=== PATIENT | male | born 1935 | race Caucasian/White ===

== ENCOUNTER 2018-02-01 11:03 | Emergency (ER) | payer MEDICARE ==
[2018-02-01] MEDS ORDERED: LIDOCAINE UROJECT 10 ML APPL MM ONE ×2 (11:06→11:19)
--- NOTE | 2018-02-01 11:10 | Emergency Department Record ---
History of Present Illness - General Chief complaint: Male Urogenital Problem Stated complaint: NEED CATH PUT BACK IN Time Seen by Provider: 02/01/18 11:06 Source: EMS Mode of Arrival: Ambulatory Limitations: Altered mental status - History of Present Illness Initial comments: The patient is here from [facility] due to needing a de león catheter placed. He has a chronic indwelling catheter that was to be changed today but the nurse at [facility] was not able to place it correctly. There have been no changes in the patient's health. MD Complaint: Other Review of Systems Constitutional: Denies: Chills, Fever Eyes: Denies: Eye discharge ENT: Denies: Congestion Respiratory: Denies: Cough Physical Exam - General General Appearance: Alert, Cooperative, No acute distress - Head Head exam: Atraumatic, Normocephalic - Eye Eye exam: Normal appearance, PERRL - Neck Neck exam: Normal inspection, Full ROM. negative: Tenderness - Respiratory Respiratory exam: Normal lung sounds bilaterally. negative: Respiratory distress - Cardiovascular Cardiovascular Exam: Regular rate, Normal rhythm, Normal heart sounds - GI/Abdominal GI/Abdominal exam: Soft, Normal bowel sounds. negative: Tenderness - Extremities Extremities exam: Normal inspection, Full ROM, Normal capillary refill. negative: Tenderness - Neurological Neurological exam: Alert. negative: Motor sensory deficit, Oriented X3 Course - Reevaluation(s) Reevaluation #1: The patient did have a Coude catheter placed with no difficulty. There was some bleeding from the meatus prior to placement. The urine was slightly pink after but was flowing normally. The patient will be discharged back to [facility]. 02/01/18 11:48 Disposition Disposition: Discharge Clinical Impression: De León catheter problem Qualifiers: Encounter type: initial encounter Qualified Code(s): T83.9XXA - Unspecified complication of genitourinary prosthetic device, implant and graft, initial encounter Disposition: Home, Self-Care Condition: (2) Stable Instructions: De León Catheter Placement and Care (ED) Additional Instructions: Please continue the previous instructions for the catheter. Please have the patient see his PCP if having any problems later this week. Forms: Patient Portal Access Time of Disposition: 11:49 Quality - Quality Measures Quality Measures: N/A - Blood Pressure Screening View Details: Yes Does Patient Have Any of the Following: No Blood Pressure Classification: Hypertensive Reading Systolic Measurement: 147 Diastolic Measurement: 75 Screening for High Blood Pressure: < First Hypertensive BP, F/U Documented > [ G8950] First Hypertensive Follow-up Interventions: Referral to alternative/primary care provider.
== END 2018-02-01 12:22 | disposition home or self-care (01) ==
LOC: ER 11:03
DX: T83.091A Other mechanical complication of indwelling urethral catheter, initial encounter (principal); Y73.2 Prosthetic and other implants, materials and accessory gastroenterology and urology devices associated with adverse incidents; Y65.8 Other specified misadventures during surgical and medical care; Y92.129 Unspecified place in nursing home as the place of occurrence of the external cause
CPT/HCPCS: 99282

== ENCOUNTER 2018-08-06 09:23 | Inpatient (IN) | payer MEDICARE, BC ==
[2018-08-06 09:53] LABS: ABSOLUTE NEUTROPHIL COUNT 7.44; HEMATOCRIT 37.7 % (42.0-52.0); MEAN CELL VOLUME 93.3 fl (81-97); MEAN CORPUSCULAR HEMOGLOBIN 29.7 pg (27-33); MEAN CORPUSCULAR HGB CONC 31.8 g/dl (32-36); MEAN PLATELET VOLUME 9.7 fl (7.4-10.4); PLATELET COUNT 217 K/uL (130-400); RED BLOOD COUNT 4.04 M/uL (4.40-5.70); RED CELL DISTRIBUTION WIDTH 14.6 % (11.5-14.5); URINE APPEARANCE SL CLOUDY; URINE BILIRUBIN NEGATIVE (NEGATIVE); URINE BLOOD MODERATE (NEGATIVE); URINE COLOR YELLOW; URINE GLUCOSE (UA) NEGATIVE (NEGATIVE); URINE KETONE 15 mg/dL (NEGATIVE); URINE LEUKOCYTE ESTERASE LARGE (NEGATIVE); URINE NITRITE POSITIVE (NEGATIVE); URINE UROBILINOGEN 0.2 E.U./dL (0.20 - 1.00); WHITE BLOOD COUNT W/O DIFF 8.7 K/uL (4.2-12.2)
[2018-08-06 09:57] LABS: AMPHETAMINE SCREEN URINE NOT DETECTED; BARBITURATE SCREEN URINE NOT DETECTED; BENZODIAZEPINE SCREEN URINE NOT DETECTED; COCAINE SCREEN URINE NOT DETECTED; METHADONE SCREEN URINE NOT DETECTED; METHAMPHETAMINE SCREEN NOT DETECTED; OPIATE SCREEN URINE NOT DETECTED; OXYCODONE SCREEN URINE NOT DETECTED; PHENCYCLIDINE SCREEN URINE NOT DETECTED; PROPOXYPHENE SCREEN URINE NOT DETECTED; THC SCREEN URINE NOT DETECTED; TRICYCLIC ANTIDEPRESSANT SCRN NOT DETECTED
--- NOTE | 2018-08-06 10:02 | Emergency Department Record ---
History of Present Illness - General Chief Complaint: Unresponsive Stated Complaint: UNCONSCIOUS Time Seen by Provider: 08/06/18 09:27 Source: EMS Mode of Arrival: EMS Limitations: Altered mental status - History of Present Illness Initial comments: pt brought in by ems for mental status changes. pt reportedly fainted while in bed at [facility] and became unresponsive. employees started cpr when pt said ow ow ow and cpr was stopped. ems brought pt in breathing w stable vitals and moaning and moving. pt has an indwelling catheter -: Unknown Associated Symptoms: Weakness - [place] Coma Scale Eye Response: (2) Open to pain Motor Response: (4) Withdraws to pain Verbal Response: (3) Inappropriate words Teodoro Total: 9 - Related Data Home Medications Medication Instructions Recorded Confirmed Last Taken Acetaminophen 325 mg PO Q6HR 08/06/18 08/06/18 08/06/18 Alprazolam [Xanax] 0.25 mg PO Q8H 08/06/18 08/06/18 08/05/18 Latanoprost/Pf [Latanoprost 0.005% 7.5 ml OP QHS 08/06/18 08/06/18 08/05/18 Eye Drop] Lisinopril 30 mg PO DAILY 08/06/18 08/06/18 08/06/18 Lorazepam [Ativan] 1 mg PO ASDIR PRN 08/06/18 08/06/18 07/18/18 Allergies Allergy/AdvReac Type Severity Reaction Status Date / Time donepezil Allergy HYPERSENSIT Verified 08/06/18 10:35 IVITY ibuprofen [From Motrin] Allergy HYPERSENSIT Verified 08/06/18 10:35 IVITY pneumococcal vaccine Allergy HYPERSENSIT Verified 08/06/18 10:35 IVITY shellfish derived Allergy HYPERSENSIT Verified 08/06/18 10:35 IVITY Sulfa (Sulfonamide Allergy HYPERSENSIT Verified 08/06/18 10:35 Antibiotics) IVITY Tetanus Vaccines and Toxoid Allergy HYPERSENSIT Verified 08/06/18 10:35 IVITY Travel Screening - Travel/Exposure Within Last 30 Days Have you traveled within the last 30 days?: No - Travel/Exposure Within Last Year Have you traveled outside the [place] in the last year?: No - Additonal Travel Details Have you been exposed to anyone with a communicable illness?: No Review of Systems ROS unobtainable: Due to mental status Constitutional: Reports: As per HPI, Fever. Denies: Chills, Malaise, Night sweats, Weakness, Weight change Eyes: Reports: As per HPI. Denies: Eye discharge, Eye pain, Photophobia, Vision change ENT: Reports: As per HPI. Denies: Congestion, Dental pain, Ear pain, Epistaxis, Hearing loss, Throat pain Respiratory: Reports: As per HPI. Denies: Cough, Dyspnea, Hemoptysis, Stridor, Wheezes Cardiovascular: Reports: As per HPI. Denies: Arrhythmia, Chest pain, Dyspnea on exertion, Edema, Murmurs, Orthopnea, Palpitations, Paroxysmal nocturnal dyspnea, Rheumatic Fever, Syncope Endocrine: Reports: As per HPI. Denies: Fatigue, Heat or cold intolerance, Polydipsia, Polyuria Gastrointestinal: Reports: As per HPI. Denies: Abdominal pain, Constipation, Diarrhea, Hematemesis, Hematochezia, Melena, Nausea, Vomiting Genitourinary: Reports: As per HPI. Denies: Dysuria, Frequency, Hematuria, Incontinence, Retention, Testicular pain, Testicular mass, Urgency Musculoskeletal: Reports: As per HPI. Denies: Arthralgia, Back pain, Gout, Joint swelling, Myalgia, Neck pain Skin: Reports: As per HPI. Denies: Bruising, Change in color, Change in hair/nails, Lesions, Pruritus, Rash Neurological: Reports: As per HPI. Denies: Abnormal gait, Confusion, Headache, Numbness, Paresthesias, Seizure, Tingling, Tremors, Vertigo, Weakness Psychiatric: Reports: As per HPI. Denies: Anxiety, Auditory hallucinations, Depression, Homicidal thoughts, Suicidal thoughts, Visual hallucinations Hematological/Lymphatic: Reports: As per HPI. Denies: Anemia, Blood Clots, Easy bleeding, Easy bruising, Swollen glands Past Medical History - SOCIAL HISTORY Smoking Status: Never smoker Family Medical History Any Significant Family History?: No Physical Exam - General General Appearance: Alert, Cooperative, Mild distress - Head Head exam: Normal inspection - Eye Eye exam: Normal appearance, PERRL, EOMI Pupils: Normal accommodation - ENT ENT exam: Normal exam, Mucous membranes dry, Normal external ear exam, Normal orophraynx Ear exam: Normal external inspection. negative: External canal tenderness Nasal Exam: Normal inspection. negative: Discharge, Sinus tenderness Mouth exam: Normal external inspection, Tongue normal Teeth exam: Normal inspection. negative: Dental caries Throat exam: Normal inspection. negative: Tonsillar erythema, Tonsillar exudate - Neck Neck exam: Normal inspection, Full ROM. negative: Tenderness - Respiratory Respiratory exam: Normal lung sounds bilaterally. negative: Respiratory distress - Cardiovascular Cardiovascular Exam: Regular rate, Normal rhythm, Normal heart sounds - GI/Abdominal GI/Abdominal exam: Soft, Normal bowel sounds. negative: Tenderness - Rectal Rectal exam: Deferred - exam: Deferred - Extremities Extremities exam: Normal inspection, Full ROM, Normal capillary refill. negative: Tenderness - Back Back exam: Reports: Normal inspection, Full ROM. Denies: Muscle spasm, Rash noted, Tenderness - Neurological Neurological exam: Altered, CN II-XII intact - Psychiatric Psychiatric exam: Normal affect, Normal mood - Skin Skin exam: Dry, Intact, Normal color, Warm Course Vital Signs 08/06/18 09:29 Temperature 99.7 F H Respiratory 20 Rate - Reevaluation(s) Reevaluation #1: 08/06/18 12:09 wants xanax stopped and use ativan instead Medical Decision Making - Lab Data Result diagrams: 08/06/18 09:40 08/06/18 09:40 Lab Results 08/06/18 08/06/18 Range/Units 09:40 09:40 WBC 8.7 (4.2-12.2) K/uL RBC 4.04 L (4.40-5.70) M/uL Hgb 12.0 L (14.0-18.0) gm/dl Hct 37.7 L (42.0-52.0) % MCV 93.3 (81-97) fl MCH 29.7 (27-33) pg MCHC 31.8 L (32-36) g/dl RDW 14.6 H (11.5-14.5) % Plt Count 217 (130-400) K/uL MPV 9.7 (7.4-10.4) fl Eosinophils % Not Reportable Basophils % Not Reportable Absolute Neutrophils 7.44 Urine Color Yellow Urine Appearance Sl cloudy Urine pH 7.0 (5.0-8.0) Ur Specific [place] 1.015 (1.002-1.030) Urine Protein 30 mg/dl H (NEGATIVE) Urine Glucose (UA) Negative (NEGATIVE) Urine Ketones 15 mg/dl H (NEGATIVE) Urine Blood Moderate (NEGATIVE) Urine Nitrite Positive H (NEGATIVE) Urine Bilirubin Negative (NEGATIVE) Urine Urobilinogen 0.2 (0.20 - 1.00) E.U./dL Ur Leukocyte Esterase Large H (NEGATIVE) Disposition Disposition: Admit Clinical Impression: Pyelonephritis Disposition: Still a Patient at [facility] Decision to Admit: Admit from ER Decision to Admit Date: 08/06/18 Decision to Admit Time: 11:50 Forms: Patient Portal Access Quality - Quality Measures Quality Measures: N/A - Blood Pressure Screening Does Patient Have Any of the Following: No Blood Pressure Classification: Pre-Hypertensive BP Reading Systolic Measurement: 153 Diastolic Measurement: 82 Screening for High Blood Pressure: < Pre-Hypertensive BP, F/U Documented > [G8950] Pre-Hypertensive Follow-up Interventions: Follow-up with rescreen every year.
[2018-08-06 10:03] LABS: CREATININE 1.4 mg/dL (0.7-1.2)
[2018-08-06 10:04] LABS: BILIRUBIN,TOTAL 0.6 mg/dL (0.2-1.0); TOTAL PROTEIN 7.2 g/dL (6.6-8.7)
[2018-08-06 10:05] LABS: URINE BACTERIA 4+; URINE EPITHELIAL CELLS NONE SEEN (FEW)
[2018-08-06 10:09] LABS: ALB/GLOB RATIO 1.5 (1.1-1.8); ALBUMIN 4.3 g/dL (4.0-5.0)
[2018-08-06 10:22] LABS: PLATELET ESTIMATE NORMAL (NORMAL)
[2018-08-06] MEDS ORDERED: CIPROFLOXACIN LACTATE/D5W 400 MG/200 ML BAG IVPB ONE (11:11)
[2018-08-06] MEDS ORDERED: LORAZEPAM 2 MG/ML VIAL IV PRN (13:59)
--- NOTE | 2018-08-06 16:09 | History & Physical ---
History of Present Illness - Date of Service Date of Service for History & Physical: 08/07/18 - History of Present Illness Admitting Diagnosis: pylonephritis. mental status changes History of Present Illness: 83 year old male patient presented to ED for evaluation of mental status changes. Patient lives at [facility], where staff report patient became unconscious while in bed. [facility] employees started CPR at that time but patient awakened, yelling out in pain. Upon arrival to ED, patient had normal respiratory rate, unremarkable vital signs, and moaning. Patient has a history of dementia with a GCS of 9 in the ER. Staff report no recent illness or trauma to patient. Patient's past medical history include: dementia, HTN, hemorrhagic CVA with residual aphasia, current indwelling urinary catheter PCP: Dr. Staley ED Course: Temp 99.7F, RR 20, HR 59, BP 140/83 WBC 8.7, lactic acid 1.4, Hgb 12 UA: moderate blood, positive nitrites, large leuk, large WBC Blood cultures and urine cultures pending CXR: patchy opacities in left lung base Head CT: no acute findings Cipro 400mg q12h IVPB 08/06/18: Patient is not oriented, opens eyes to painful stimulation, does not follow commands or verbalize answers to questions. VS stable. Changing Cipro that was started in ED to Levaquin for further respiratory coverage due to coarse lung sounds and questionable infiltrates noted on CXR. Travel Screening - Travel/Exposure Within Last 30 Days Have you traveled within the last 30 days?: No - Travel/Exposure Within Last Year Have you traveled outside the [place] in the last year?: No - Additonal Travel Details Have you been exposed to anyone with a communicable illness?: No Exposure Details:: lives at [facility] Review of Systems Reviewed: No additional complaints except as noted below Constitutional: Reports: As per HPI, Fever. Denies: Chills, Malaise, Night sweats, Weakness, Weight change Eyes: Reports: As per HPI. Denies: Eye discharge, Eye pain, Photophobia, Vision change ENT: Reports: As per HPI. Denies: Congestion, Dental pain, Ear pain, Epistaxis, Hearing loss, Throat pain Respiratory: Reports: As per HPI. Denies: Cough, Dyspnea, Hemoptysis, Stridor, Wheezes Cardiovascular: Reports: As per HPI. Denies: Arrhythmia, Chest pain, Dyspnea on exertion, Edema, Murmurs, Orthopnea, Palpitations, Paroxysmal nocturnal dyspnea, Rheumatic Fever, Syncope Endocrine: Reports: As per HPI. Denies: Fatigue, Heat or cold intolerance, Polydipsia, Polyuria Gastrointestinal: Reports: As per HPI. Denies: Abdominal pain, Constipation, Diarrhea, Hematemesis, Hematochezia, Melena, Nausea, Vomiting Genitourinary: Reports: As per HPI. Denies: Dysuria, Frequency, Hematuria, Incontinence, Retention, Testicular pain, Testicular mass, Urgency Musculoskeletal: Reports: As per HPI. Denies: Arthralgia, Back pain, Gout, Joint swelling, Myalgia, Neck pain Skin: Reports: As per HPI. Denies: Bruising, Change in color, Change in hair/nails, Lesions, Pruritus, Rash Neurological: Reports: As per HPI, Confusion. Denies: Abnormal gait, Headache, Numbness, Paresthesias, Seizure, Tingling, Tremors, Vertigo, Weakness Psychiatric: Reports: As per HPI. Denies: Anxiety, Auditory hallucinations, Depression, Homicidal thoughts, Suicidal thoughts, Visual hallucinations Hematological/Lymphatic: Reports: As per HPI. Denies: Anemia, Blood Clots, Easy bleeding, Easy bruising, Swollen glands Past Medical History - SOCIAL HISTORY Smoking Status: Never smoker Alcohol Use: None Alcohol Use Comment: beer infrequently in past Drug Use: None - RESPIRATORY Hx Respiratory Disorders: No - CARDIOVASCULAR Hx Cardio Disorders: Yes Hx Hypertension: Yes - NEURO Hx Neuro Disorders: Yes Hx Dementia: Yes Hx Neuropathy: Yes - GI Hx GI Disorders: Yes Hx Hiatal Hernia: Yes Hx of Polyps: Yes - Hx Genitourinary Disorders: Yes Hx Kidney Stones: Yes Hx UTI: Yes (frequent) - ENDOCRINE Hx Endocrine Disorders: No - MUSCULOSKELETAL Hx Musculoskeletal Disorders: No - PSYCH Hx Psych Problems: No - HEMATOLOGY/ONCOLOGY Hx Hematology/Oncology Disorders: Yes Hx Cancer: Yes (liposarcoma) Family Medical History Any Significant Family History?: No Hx Alcohol Use: Mother, Brother/Sister Hx Cancer: Father Hx Dementia: Father, Grandparents Hx Heart Disease: Mother H&P Meds/Allergies - Allergies Allergies: Allergies Allergy/AdvReac Type Severity Reaction Status Date / Time donepezil Allergy HYPERSENSIT Verified 08/06/18 10:35 IVITY ibuprofen [From Motrin] Allergy HYPERSENSIT Verified 08/06/18 10:35 IVITY pneumococcal vaccine Allergy HYPERSENSIT Verified 08/06/18 10:35 IVITY shellfish derived Allergy HYPERSENSIT Verified 08/06/18 10:35 IVITY Sulfa (Sulfonamide Allergy HYPERSENSIT Verified 08/06/18 10:35 Antibiotics) IVITY Tetanus Vaccines and Toxoid Allergy HYPERSENSIT Verified 08/06/18 10:35 IVITY - Home Medications Home Medications Medication Instructions Recorded Confirmed Last Taken Acetaminophen 325 mg PO Q6H PRN 08/06/18 08/06/18 08/06/18 Alprazolam [Xanax] 0.25 mg PO BID PRN 08/06/18 08/06/18 08/05/18 Latanoprost/Pf [Latanoprost 0.005% 1 drop OP QHS 08/06/18 08/06/18 08/05/18 Eye Drop] Lisinopril 30 mg PO DAILY 08/06/18 08/06/18 08/06/18 Lorazepam [Ativan] 1 mg PO MONTHLY PRN 08/06/18 08/06/18 07/18/18 - Active Medications Active Medications: Current Medications Acetaminophen (Tylenol 500mg Tab) 1,000 mg PO Q6H PRN PRN Reason: PAIN - MILD(1-4)/FEVER Ciprofloxacin Lactate (Cipro) 400 mg in 200 mls @ 200 mls/hr IVPB Q12HR ITZ Stop: 08/11/18 22:01 Latanoprost (Xalatan) 1 drop OPTH QHS ITZ Lisinopril (Zestril) 30 mg PO DAILY ITZ Lorazepam (Ativan) 1 mg IV Q8H PRN PRN Reason: ANXIETY Physical Exam - Vital Signs Vital Signs: Vital Signs - Last 24 Hrs Temp Pulse Pulse Resp BP BP Pulse Ox 08/06/18 13:12 68 16 144/75 97 08/06/18 12:50 59 L 18 133/68 99 08/06/18 11:30 60 18 149/70 99 08/06/18 11:00 99 H 18 109/68 99 08/06/18 10:40 65 16 108/71 99 08/06/18 10:20 62 16 145/71 99 08/06/18 09:40 75 16 129/76 99 08/06/18 09:32 66 16 129/64 99 05/10/19 09:29 99.7 F H 73 20 153/82 99 - General General Appearance: No acute distress Limitations: Altered mental status - Head Head exam: Normal inspection - Eye Eye exam: Normal appearance, PERRL Pupils: Normal accommodation - ENT ENT exam: Normal exam, Mucous membranes dry Ear exam: Normal external inspection. negative: External canal tenderness Nasal Exam: Normal inspection. negative: Discharge, Sinus tenderness Mouth exam: Normal external inspection Teeth exam: Normal inspection. negative: Dental caries Throat exam: Normal inspection. negative: Tonsillar erythema, Tonsillar exudate - Neck Neck exam: Normal inspection, Full ROM. negative: Tenderness - Respiratory Respiratory exam: Rhonchi (bilateral lower lobes). negative: Respiratory distress - Cardiovascular Cardiovascular Exam: Regular rate, Normal rhythm, Normal heart sounds Peripheral Pulses: 2+: Radial (R), Radial (L), Dorsalis Pedis (R), Dorsalis Pedis (L) - GI/Abdominal GI/Abdominal exam: Soft, Normal bowel sounds. negative: Tenderness - Rectal Rectal exam: Deferred - exam: Deferred, Other (de león cather in place) - Extremities Extremities exam: Normal inspection, Full ROM, Normal capillary refill. negative: Tenderness - Back Back exam: Reports: Normal inspection, Full ROM. Denies: Muscle spasm, Rash noted, Tenderness - Neurological Neurological exam: Altered - Skin Skin exam: Dry, Intact, Warm Results - Labs Result Diagrams: 08/07/18 06:15 08/07/18 06:15 Labs Last 24 Hours: Laboratory Results - last 24 hr 08/06/18 08/06/18 08/06/18 09:40 09:40 09:40 WBC 8.7 RBC 4.04 L Hgb 12.0 L Hct 37.7 L MCV 93.3 MCH 29.7 MCHC 31.8 L RDW 14.6 H Plt Count 217 MPV 9.7 Neutrophils % 92.0 H Eosinophils % Not Reportable Basophils % Not Reportable Absolute Neutrophils 7.44 Lymphocytes 5.0 L Monocytes 3.0 Platelet Estimate Normal RBC Morphology Normal Sodium 140 Potassium 4.2 Chloride 103 Carbon Dioxide 26.0 Anion Gap 11.0 BUN 34 H Creatinine 1.4 H Estimated GFR 51 POC Glucose Random Glucose 122 H Lactic Acid Calcium 9.3 Total Bilirubin 0.60 AST 21 ALT 14 Alkaline Phosphatase 54 Total Protein 7.2 Albumin 4.3 Globulin 2.9 Albumin/Globulin Ratio 1.5 Urine Color Yellow Urine Appearance Sl cloudy Urine pH 7.0 Ur Specific [place] 1.015 Urine Protein 30 mg/dl H Urine Glucose (UA) Negative Urine Ketones 15 mg/dl H Urine Blood Moderate Urine Nitrite Positive H Urine Bilirubin Negative Urine Urobilinogen 0.2 Ur Leukocyte Esterase Large H Urine RBC 10 - 15 Urine WBC Too numerous to cnt Ur Epithelial Cells None seen Urine Bacteria 4+ Urine Opiates Screen Ur Oxycodone Screen Urine Methadone Screen Ur Propoxyphene Screen Ur Barbituates Screen Ur Tricyclics Screen Ur Phencyclidine Scrn Ur Amphetamine Screen U Methamphetamines Scrn U Benzodiazepines Scrn Urine Cocaine Screen Urine Cannabis Screen 08/06/18 08/06/18 08/06/18 09:40 09:40 09:40 WBC RBC Hgb Hct MCV MCH MCHC RDW Plt Count MPV Neutrophils % Eosinophils % Basophils % Absolute Neutrophils Lymphocytes Monocytes Platelet Estimate RBC Morphology Sodium Potassium Chloride Carbon Dioxide Anion Gap BUN Creatinine Estimated GFR POC Glucose 117 H Random Glucose Lactic Acid 1.2 Calcium Total Bilirubin AST ALT Alkaline Phosphatase Total Protein Albumin Globulin Albumin/Globulin Ratio Urine Color Urine Appearance Urine pH Ur Specific [place] Urine Protein Urine Glucose (UA) Urine Ketones Urine Blood Urine Nitrite Urine Bilirubin Urine Urobilinogen Ur Leukocyte Esterase Urine RBC Urine WBC Ur Epithelial Cells Urine Bacteria Urine Opiates Screen Not detected Ur Oxycodone Screen Not detected Urine Methadone Screen Not detected Ur Propoxyphene Screen Not detected Ur Barbituates Screen Not detected Ur Tricyclics Screen Not detected Ur Phencyclidine Scrn Not detected Ur Amphetamine Screen Not detected U Methamphetamines Scrn Not detected U Benzodiazepines Scrn Not detected Urine Cocaine Screen Not detected Urine Cannabis Screen Not detected - Imaging and Cardiology Chest x-ray Status: Report reviewed CT scan - head Status: Report reviewed VTE H&P Assessment - Risk for VTE Risk for VTE: Yes Risk Level: High Risk Assessment Date: 08/06/18 Risk Assessment Time: 16:00 VTE Orders Placed or Will Be Placed: Yes VTE Reason for No Prophylaxis: Contraindicated (history of intracerebral hemorrhage) Plan - Inpatient Certification Inpatient Certification: Admit to inpatient care: Based on my medical assessment, after consideration of patient's risk factors (age, co-morbidities and patient presenting symptoms and acuity), I expect that this patient will remain in the hospital greater than or equal to two midnights and that the services needed warrant inpatient care because: Patient Risk Factors: [age, hospitalization, UTI, dementia] Estimated length of stay: The patient may reasonably be expected to be discharged or transferred to a hospital within 36-96 hours after admission to [facility]. Services needed: [IV antibiotics, promotions coordinator, IV fluids, serial labs, PT/OT] Post hospital care (if known): [] I certify that my determination is in accordance with my understanding of Medicare requirements for reasonable and necessary inpatient services. 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 Switched to Levaquin 750mg q48h due to increased respiratory coverage -0.9%NS @ 100ml/hr -VS q4h (3) DVT prophylaxis Current Visit: Yes Status: Acute Base Code: Z29.9 - ENCOUNTER FOR PROPHYLACTIC MEASURES, UNSPECIFIED Comment: 08/06/18: -High risk due to age, hospitalization, and illness -Will not start further anticoagulants due to history of nontraumatic intracereb ral hemorrhage -Encourage ambulation within the room as tolerated (4) DNR (do not resuscitate) Current Visit: Yes Status: Acute Base Code: Z66 - DO NOT RESUSCITATE Comment: 08/06/18: -DNR this admission
[2018-08-06] MEDS: LEVOFLOXACIN/D5W 750 MG/150 ML BAG IVPB SCH (17:13)
[2018-08-06] MEDS: 0.9 % SODIUM CHLORIDE 1000ML 1,000 ML IV SCH ×2 (17:17→22:08)
[2018-08-06] MEDS ORDERED: ACETAMINOPHEN 650 MG SUPP RC PRN (17:18)
[2018-08-06] MEDS ORDERED: 0.9 % SODIUM CHLORIDE 1000ML 1,000 ML IV ONE (17:39)
[2018-08-06] MEDS ORDERED: CIPROFLOXACIN LACTATE/D5W 400 MG/200 ML BAG IVPB SCH (22:00)
[2018-08-07] MEDS: LATANOPROST 0.005% OPTH SOLUTION 2.5ML BOTTLE OPTH SCH ×2 (00:29→23:02)
[2018-08-07] MEDS: 0.9 % SODIUM CHLORIDE 1000ML 1,000 ML IV SCH ×3 (02:41→23:03)
[2018-08-07 06:28] LABS: ABSOLUTE NEUTROPHIL COUNT 9.29; HEMATOCRIT 34.8 % (42.0-52.0); HEMOGLOBIN 11.1 gm/dl (14.0-18.0); MEAN CELL VOLUME 93.3 fl (81-97); MEAN CORPUSCULAR HGB CONC 31.9 g/dl (32-36); MEAN PLATELET VOLUME 9.7 fl (7.4-10.4); PLATELET COUNT 184 K/uL (130-400); RED BLOOD COUNT 3.73 M/uL (4.40-5.70); RED CELL DISTRIBUTION WIDTH 14.6 % (11.5-14.5)
[2018-08-07 06:34] LABS: MEAN CORPUSCULAR HEMOGLOBIN 29.7 pg (27-33)
[2018-08-07 06:50] LABS: CREATININE 1.3 mg/dL (0.7-1.2)
[2018-08-07] MEDS: LISINOPRIL 10 MG TABLET PO SCH (09:27)
[2018-08-07] MEDS: LORAZEPAM 0.5 MG TABLET PO SCH ×2 (09:44→21:42)
[2018-08-07] MEDS: ACETAMINOPHEN 500 MG TABLET PO PRN (11:22)
--- NOTE | 2018-08-07 11:50 | Physician Progress Note ---
Subjective - Date Date of Physician Progress Note: 08/07/18 - Subjective Subjective Comment: 08/07/18: Patient alert, interacting with staff, sitting in chair. Not oriented but near baseline mentation. Patient was febrile within the past 24 hours, with a max temp of 104. Received IV fluids and rectal acetaminophen with improvement in symptoms. Tolerating PO diet today. Objective - Vital Signs Vital Signs: Vital Signs - Last 24 Hrs Temp Pulse Pulse Pulse Resp BP BP 08/07/18 09:20 97.8 F 100 H 100 H 20 144/52 08/07/18 09:00 90 20 08/07/18 05:43 98.9 F 93 H 18 08/06/18 23:34 98.8 F 08/06/18 21:26 99.9 F H 102/52 08/06/18 20:41 99.9 F H 76 16 08/06/18 20:25 78 76 16 08/06/18 18:06 101.8 F H 08/06/18 17:00 104.1 F H 08/06/18 13:15 98.7 F 08/06/18 13:12 68 16 08/06/18 12:50 59 L 18 133/68 BP Pulse Ox 08/07/18 09:20 96 08/07/18 09:00 08/07/18 05:43 150/77 93 L 08/06/18 23:34 08/06/18 21:26 08/06/18 20:41 102/52 97 08/06/18 20:25 08/06/18 18:06 08/06/18 17:00 08/06/18 13:15 08/06/18 13:12 144/75 97 08/06/18 12:50 99 - General General Appearance: Alert, No acute distress Limitations: Altered mental status (per baseline) - Head Head exam: Normal inspection - Eye Eye exam: Normal appearance, PERRL Pupils: Normal accommodation - ENT ENT exam: Normal exam, Mucous membranes dry Ear exam: Normal external inspection. negative: External canal tenderness Nasal Exam: Normal inspection. negative: Discharge, Sinus tenderness Mouth exam: Normal external inspection Teeth exam: Normal inspection. negative: Dental caries Throat exam: Normal inspection. negative: Tonsillar erythema, Tonsillar exudate - Neck Neck exam: Normal inspection, Full ROM. negative: Tenderness - Respiratory Respiratory exam: Decreased breath sounds. negative: Respiratory distress - Cardiovascular Cardiovascular Exam: Regular rate, Normal rhythm, Normal heart sounds Peripheral Pulses: 2+: Radial (R), Radial (L), Dorsalis Pedis (R), Dorsalis Pedis (L) - GI/Abdominal GI/Abdominal exam: Soft, Normal bowel sounds. negative: Tenderness - Rectal Rectal exam: Deferred - exam: Deferred, Other (de león cather in place) - Extremities Extremities exam: Normal inspection, Full ROM, Normal capillary refill. negative: Tenderness - Back Back exam: Reports: Normal inspection, Full ROM. Denies: Muscle spasm, Rash noted, Tenderness - Neurological Neurological exam: Abnormal gait (weak, tremorous), Alert, Altered - Psychiatric Psychiatric exam: Normal affect, Normal mood - Skin Skin exam: Dry, Intact, Warm Assessment and Plan - Assessment and Plan (1) Altered level of consciousness Current Visit: Yes Status: Acute Base Code: R40.4 - TRANSIENT ALTERATION OF AWARENESS Comment: 08/07/18: -Altered LOC noted by [facility] staff yesterday -Head CT: no acute changes -CXR: patchy opacities LLL, cannot rule out PNA -CBC and CMP unremarkable, lactic 1.1 -UA: positive nitrites, large leuk, large WBC, 4+ bacteria -Blood cultures and urine culture pending -0.9% NS @ 100ml/hr -Mentation improved today, interactive with staff, sitting up in chair (2) Pyelonephritis Current Visit: Yes Status: Acute Base Code: N12 - TUBULO-INTERSTITIAL NEPHRITIS, NOT SPCF ACUTE OR CHRONIC Comment: 08/07/18: -UA: positive nitrites, large leuk, large WBC, 4+ bacteria -urine culture pending -CBC and CMP unremarkable -temp max 104 in past 24 hours, received 1000mL NS fluid bolus and 650mg acetaminophen -Cipro started in ER. Switched to Levaquin 750mg q48h for increased respiratory coverage -0.9%NS @ 100ml/hr -VS q4h (3) DVT prophylaxis Current Visit: Yes Status: Acute Base Code: Z29.9 - ENCOUNTER FOR PROPHYLACTIC MEASURES, UNSPECIFIED Comment: 08/07/18: -High risk due to age, hospitalization, and illness -Will not start further anticoagulants due to history of nontraumatic intracerebral hemorrhage -Encourage ambulation within the room as tolerated (4) DNR (do not resuscitate) Current Visit: Yes Status: Acute Base Code: Z66 - DO NOT RESUSCITATE Comment: 08/07/18: -DNR this admission Results - Labs Result Diagrams: 08/07/18 06:15 08/07/18 06:15 Labs Last 24 Hours: Laboratory Results - last 24 hr 08/07/18 08/07/18 08/07/18 06:15 06:15 06:15 WBC 11.0 RBC 3.73 L Hgb 11.1 L Hct 34.8 L MCV 93.3 MCH 29.7 MCHC 31.9 L RDW 14.6 H Plt Count 184 MPV 9.7 Neutrophils % 86.0 H Eosinophils % Not Reportable Basophils % Not Reportable Absolute Neutrophils 9.29 Lymphocytes 8.0 L Monocytes 6.0 Sodium 140 Potassium 3.9 Chloride 106 Carbon Dioxide 24.0 Anion Gap 10.0 BUN 34 H Creatinine 1.3 H Estimated GFR 56 Random Glucose 107 Lactic Acid 1.1 Calcium 8.3 L DVT/PE Assessment - Risk for VTE Risk for VTE: No Risk Level: High Risk Assessment Date: 08/06/18 Risk Assessment Time: 16:00 VTE Orders Placed or Will Be Placed: Yes VTE Reason for No Prophylaxis: Contraindicated (history of intracerebral hemorrhage) - Active Medicaitons Current Medications: Current Medications Acetaminophen (Tylenol 500mg Tab) 1,000 mg PO Q6H PRN PRN Reason: PAIN - MILD(1-4)/FEVER Last Admin: 08/07/18 11:22 Dose: 1,000 mg Documented by: Acetaminophen (Tylenol Supp) 650 mg RC Q6H PRN PRN Reason: FEVER Sodium Chloride () 1,000 mls @ 100 mls/hr IV .Q10H [facility] Last Infusion: 08/07/18 11:06 Dose: Infused Documented by: Levofloxacin/Dextrose (Levaquin 750mg Ivpb) 750 mg in 150 mls @ 125 mls/hr IVPB Q48H [facility] Stop: 08/11/18 16:16 Last Infusion: 08/06/18 18:46 Dose: Infused Documented by: Latanoprost (Xalatan) 1 drop OPTH QHS [facility] Last Admin: 08/07/18 00:29 Dose: Not Given Documented by: Lisinopril (Zestril) 30 mg PO DAILY [facility] Last Admin: 08/07/18 09:27 Dose: 30 mg Documented by: Lorazepam (Ativan) 1 mg IV Q8H PRN PRN Reason: ANXIETY Last Admin: 08/06/18 18:19 Dose: 1 mg Documented by: Lorazepam (Ativan) 1 mg PO BID IT[facility] Last Admin: 08/07/18 09:44 Dose: 0.5 mg Documented by: WILFRED Plan - Labs Result Diagrams: 08/07/18 06:15 08/07/18 06:15
--- NOTE | 2018-08-07 16:27 | RADIOLOGY REPORT ---
DATE: 08/06/2018. EXAM: FRONTAL VIEW CHEST RADIOGRAPH. HISTORY: DIFFICULTY BREATHING. TECHNIQUE: A SINGLE FRONTAL AP VIEW OF THE CHEST. COMPARISON: None. FINDINGS: Cardiac silhouette is within normal limits. The thoracic aorta is calcified. Patchy opacities are noted in the left lung base along the diaphragm. No focal right lung findings. No definable pleural fluid collection or visible pneumothorax. Surgical clips are noted in the projection of the mediastinum and left upper abdominal quadrant. IMPRESSION: PATCHY LEFT LUNG BASE OPACITY, MAY REPRESENT ATELECTASIS OR ACUTE AIRSPACE DISEASE SUCH PNEUMONIA. [facility] Number: [id number] [facility]
--- NOTE | 2018-08-07 16:38 | CT SCAN REPORT ---
DATE: 08/06/2018. EXAM: NONCONTRAST CT OF THE BRAIN. HISTORY: ALTERED MENTAL STATUS. TECHNIQUE: Noncontrast CT of the brain. COMPARISON: None. FINDINGS: Examination is degraded by patient motion artifact. No midline shift, mass effect, or abnormal intra- or extra-axial fluid collection. No cerebral edema, focal mass, or intracranial hemorrhage detected. Moderate degree of generalized cerebral volume loss. Moderate periventricular and subcortical white matter hypoattenuation, likely recurrent small-vessel ischemic change. No displaced calvarial fracture is detected. Minimal mucosal thickening in the maxillary sinuses and ethmoid air cells bilaterally. IMPRESSION: 1. NO ACUTE INTRACRANIAL FINDINGS. 2. LIKELY CHRONIC AGE-RELATED FINDINGS INCLUDING DIFFUSE CEREBRAL VOLUME LOSS AND SMALL-VESSEL ISCHEMIC CHANGE. Job Number: [id number] [facility]
[2018-08-08 06:12] LABS: ABSOLUTE NEUTROPHIL COUNT 8.39; HEMATOCRIT 32.4 % (42.0-52.0); HEMOGLOBIN 10.2 gm/dl (14.0-18.0); MEAN CELL VOLUME 92.8 fl (81-97); MEAN CORPUSCULAR HEMOGLOBIN 29.2 pg (27-33); MEAN CORPUSCULAR HGB CONC 31.5 g/dl (32-36); PLATELET COUNT 174 K/uL (130-400); RED BLOOD COUNT 3.49 M/uL (4.40-5.70); RED CELL DISTRIBUTION WIDTH 14.5 % (11.5-14.5); WHITE BLOOD COUNT W/O DIFF 10.1 K/uL (4.2-12.2)
[2018-08-08 06:27] LABS: BLOOD UREA NITROGEN 30 mg/dL (8-23); CREATININE 1.2 mg/dL (0.7-1.2); EST GLOMERULAR FILTRATION RATE > 60 mL/min; GLUCOSE,RANDOM 99 mg/dL (74-109)
[2018-08-08] MEDS: ACETAMINOPHEN 500 MG TABLET PO PRN (06:31)
[2018-08-08] MEDS: 0.9 % SODIUM CHLORIDE 1000ML 1,000 ML IV SCH (07:00)
[2018-08-08] MEDS: LISINOPRIL 10 MG TABLET PO SCH (11:27)
[2018-08-08] MEDS: LORAZEPAM 0.5 MG TABLET PO SCH ×3 (11:28→12:23)
--- NOTE | 2018-08-08 12:12 | Discharge Summary ---
Providers Discharge Summary Date: 08/08/18 Date of admission: 08/06/18 12:56 Expected Date of Discharge: 08/08/18 Attending physician: YOUSUF DRAPER Primary care physician: Raphael Staley Physical Exam - Vital Signs Vital Signs: Vital Signs - Last 24 Hrs Temp Pulse Resp BP BP Pulse Ox 08/08/18 09:00 18 08/08/18 08:00 99.1 F 70 16 110/56 94 L 08/08/18 06:40 98.9 F 76 16 117/69 91 L 08/07/18 21:57 98.6 F 88 18 123/69 94 L 08/07/18 21:00 88 18 08/07/18 18:00 98.7 F 100 H 12 120/71 96 - General General Appearance: Alert, Anxious Limitations: Altered mental status (per baseline) - Head Head exam: Normal inspection - Eye Eye exam: Normal appearance, PERRL Pupils: Normal accommodation - ENT ENT exam: Normal exam, Mucous membranes dry Ear exam: Normal external inspection. negative: External canal tenderness Nasal Exam: Normal inspection. negative: Discharge, Sinus tenderness Mouth exam: Normal external inspection Teeth exam: Normal inspection. negative: Dental caries Throat exam: Normal inspection. negative: Tonsillar erythema, Tonsillar exudate - Neck Neck exam: Normal inspection, Full ROM. negative: Tenderness - Respiratory Respiratory exam: Decreased breath sounds. negative: Respiratory distress - Cardiovascular Cardiovascular Exam: Regular rate, Normal rhythm, Normal heart sounds Peripheral Pulses: 2+: Radial (R), Radial (L), Dorsalis Pedis (R), Dorsalis Pedis (L) - GI/Abdominal GI/Abdominal exam: Soft, Normal bowel sounds. negative: Tenderness - Rectal Rectal exam: Deferred - exam: Deferred, Other (de león cather in place) - Extremities Extremities exam: Normal inspection, Full ROM, Normal capillary refill. negative: Tenderness - Back Back exam: Reports: Normal inspection, Full ROM. Denies: Muscle spasm, Rash noted, Tenderness - Neurological Neurological exam: Abnormal gait (weak, tremorous), Alert, Altered - Psychiatric Psychiatric exam: Normal affect, Normal mood - Skin Skin exam: Dry, Intact, Warm Hospitalization - Hospitalization Admission Diagnosis: pylonephritis. mental status changes - Problem List/Discharge Diagnosis (1) Altered level of consciousness Current Visit: Yes Status: Acute Base Code: R40.4 - TRANSIENT ALTERATION OF AWARENESS Comment: 08/08/18: -Altered LOC noted by [facility] staff [employer] INST[employer]ER -Head CT: no acute changes -CXR: patchy opacities LLL, cannot rule out PNA -CBC and CMP unremarkable, lactic 1.1 -UA: positive nitrites, large leuk, large WBC, 4+ bacteria -Blood cultures and urine culture pending -0.9% NS @ 100ml/hr -Mentation improved today, interactive with staff, sitting up in chair (2) Pyelonephritis Current Visit: Yes Status: Acute Base Code: N12 - TUBULO-INTERSTITIAL NEPHRITIS, NOT SPCF ACUTE OR CHRONIC Comment: 08/08/18: -UA: positive nitrites, large leuk, large WBC, 4+ bacteria -urine culture pending -CBC and CMP unremarkable -temp max 104 in past 24 hours, received 1000mL NS fluid bolus and 650mg acetaminophen -Cipro started in ER. Switched to Levaquin 750mg q48h for increased respiratory coverage. Levaquin 750mg q48h for a total of 10 days -0.9%NS @ 100ml/hr -VS q4h -Blood cultures indicate gram positive cocci and clusters. Symptoms improving with Levaquin, will continue current therapy until sensitivity results (3) DVT prophylaxis Current Visit: Yes Status: Acute Base Code: Z29.9 - ENCOUNTER FOR PROPHYLACTIC MEASURES, UNSPECIFIED Comment: 08/08/18: -High risk due to age, hospitalization, and illness -Will not start further anticoagulants due to history of nontraumatic intracereb ral hemorrhage -Encourage ambulation within the room as tolerated (4) DNR (do not resuscitate) Current Visit: Yes Status: Acute Base Code: Z66 - DO NOT RESUSCITATE Comment: 08/08/18: -DNR this admission - Hospitalization Course Disposition: [facility] Hospital Course: 83 year old male patient presented to ED for evaluation of mental status changes. Patient lives at [facility], where staff report patient became unconscious while in bed. [facility] employees started CPR at that time but patient awakened, yelling out in pain. Upon arrival to ED, patient had normal respiratory rate, unremarkable vital signs, and moaning. Patient has a history of dementia with a GCS of 9 in the ER. Staff report no recent illness or trauma to patient. Patient's past medical history include: dementia, HTN, hemorrhagic CVA with residual aphasia, current indwelling urinary catheter PCP: Dr. Staley ED Course: Temp 99.7F, RR 20, HR 59, BP 140/83 WBC 8.7, lactic acid 1.4, Hgb 12 UA: moderate blood, positive nitrites, large leuk, large WBC Blood cultures and urine cultures pending CXR: patchy opacities in left lung base Head CT: no acute findings Cipro 400mg q12h IVPB 08/06/18: Patient is not oriented, opens eyes to painful stimulation, does not follow commands or verbalize answers to questions. VS stable. Changing Cipro that was started in ED to Levaquin for further respiratory coverage due to coarse lung sounds and questionable infiltrates noted on CXR. 08/08/18: Patient back at baseline mentation. Interacting with staff, oriented to baseline. Has remained afebrile, tolerating PO diet. Procedures: Imaging and X-Rays 08/06/18 09:28 CHEST 1 VIEW [RAD] Stat HEAD WO CONTRAST [CT] Stat Cardiology Procedures 08/06/18 09:28 Medical Transcription Editor NOW EKG NOW Abnormal Labs: Abnormal Lab Results 08/06/18 08/06/18 08/06/18 Range/Units 09:40 09:40 09:40 RBC 4.04 L (4.40-5.70) M/uL Hgb 12.0 L (14.0-18.0) gm/dl Hct 37.7 L (42.0-52.0) % MCHC 31.8 L (32-36) g/dl RDW 14.6 H (11.5-14.5) % Neutrophils % 92.0 H (47-80) % Lymphocytes 5.0 L (16-45) % BUN 34 H (8-23) mg/dL Creatinine 1.4 H (0.7-1.2) mg/dL POC Glucose (70-110) mg/dL Random Glucose 122 H (74-109) mg/dL Calcium (8.8-10.2) mg/dL Urine Protein 30 mg/dl H (NEGATIVE) Urine Ketones 15 mg/dl H (NEGATIVE) Urine Nitrite Positive H (NEGATIVE) Ur Leukocyte Esterase Large H (NEGATIVE) 08/06/18 08/07/18 08/07/18 Range/Units 09:40 06:15 06:15 RBC 3.73 L (4.40-5.70) M/uL Hgb 11.1 L (14.0-18.0) gm/dl Hct 34.8 L (42.0-52.0) % MCHC 31.9 L (32-36) g/dl RDW 14.6 H (11.5-14.5) % Neutrophils % 86.0 H (47-80) % Lymphocytes 8.0 L (16-45) % BUN 34 H (8-23) mg/dL Creatinine 1.3 H (0.7-1.2) mg/dL POC Glucose 117 H (70-110) mg/dL Random Glucose (74-109) mg/dL Calcium 8.3 L (8.8-10.2) mg/dL Urine Protein (NEGATIVE) Urine Ketones (NEGATIVE) Urine Nitrite (NEGATIVE) Ur Leukocyte Esterase (NEGATIVE) 08/08/18 08/08/18 Range/Units 06:00 06:00 RBC 3.49 L (4.40-5.70) M/uL Hgb 10.2 L (14.0-18.0) gm/dl Hct 32.4 L (42.0-52.0) % MCHC 31.5 L (32-36) g/dl RDW (11.5-14.5) % Neutrophils % 84.0 H (47-80) % Lymphocytes 8.0 L (16-45) % BUN 30 H (8-23) mg/dL Creatinine (0.7-1.2) mg/dL POC Glucose (70-110) mg/dL Random Glucose (74-109) mg/dL Calcium 8.2 L (8.8-10.2) mg/dL Urine Protein (NEGATIVE) Urine Ketones (NEGATIVE) Urine Nitrite (NEGATIVE) Ur Leukocyte Esterase (NEGATIVE) Condition at Discharge: (2) Stable Discharge Medications - Discharge Medications Prescriptions: Levofloxacin [Levaquin] 750 mg PO ASDIR #3 tablet Home Medications: Ambulatory Orders Acetaminophen 325 mg PO Q6H PRN 08/06/18 [Last Taken 08/06/18] Alprazolam [Xanax] 0.25 mg PO BID PRN 08/06/18 [Last Taken 08/05/18] Latanoprost/Pf [Latanoprost 0.005% Eye Drop] 1 drop OP QHS 08/06/18 [Last Taken 08/05/18] Lisinopril 30 mg PO DAILY 08/06/18 [Last Taken 08/06/18] Lorazepam [Ativan] 1 mg PO MONTHLY PRN 08/06/18 [Last Taken 07/18/18] Levofloxacin [Levaquin] 750 mg PO ASDIR #3 tablet 08/08/18 [Last Taken Unknown] Discharge Plan - Discharge Instructions Activity at Discharge: Increase Activity as Tolerated Diet at Discharge: Advance to Usual Diet Additional Instructions: -Take the antibiotic , , and Thursday -Increase water -Follow-up with Dr. Staley in 1-2 weeks Quality Measures - Quality Measures Quality Measures: Advance Directives, Documentation of Current Medications in Medical Record, Elder Maltreatment Screen and Follow-Up Plan, Screening for High Blood Pressure and F/U Documented - Current Medications Quality Measure: Measure #130: Documentation of Current Medications Documentation of Current Medications: <Current Medications Documented/Reviewed> [G8431] - Blood Pressure Screening Quality Measure: Screening for High Blood Pressure and Follow-Up Documented Does Patient Have Any of the Following: Active Dx of HTN Blood Pressure Classification: Normal BP Reading Systolic Measurement: 102 Diastolic Measurement: 52 Screening for High Blood Pressure: Patient Exclusion, Hx of HTN [G9744] - Advance Directives Quality Measure: Measure #47: Care Plan Advance Directives Established: No (N) Advance Directives Information Provided To Patient: No Advance Directives on File: No Living Will: No Power of Production Administrative Assistant: Yes Power of Production Administrative Assistant Name: Rebeka Leonardo Advance Care Planning: <Care Plan/Decision Maker Documented; Discussed & Documented> [5851F] - Elder Abuse Suspicion Index Screening: Elder Abuse Suspicion Index Screening Rely on people for bathing, dressing, shopping, banking, etc: Yes Prevented from getting food, clothes, medication, etc: Yes Made to feel shamed or threatened by someone: Did Not Answer Forced to sign papers or use money against will: Did Not Answer Feel afraid, touched in ways not wanted or hurt physically: Did Not Answer Poor eye contact, withdrawn, malnourished, cuts or bruises: Did Not Answer Screening Result: Positive result, One YES response in questions 2-6. EASI Reference Information: Wayne KULKARNI, Yasmeen C, Criselda D, Kennedy Musa.Development and validation of a tool to assist physicians identification of elder abuse: The Elder Abuse Suspicion Index (EASI ). Journal of Elder Abuse and Neglect, 2008; 20 (3): 276-300. - Elder Maltreatment Screen Quality Measures: Elder Maltreatment Screen and Follow-Up Plan Elder Maltreatment Screen: <Negative, No Follow-Up Plan Required> [G8734]
[2018-08-08] MEDS: LEVOFLOXACIN/D5W 750 MG/150 ML BAG IVPB SCH (13:55)
--- NOTE | 2018-08-10 05:15 | RADIOLOGY REPORT ---
EXAM: FRONTAL CHEST HISTORY: DIFFICULTY BREATHING. TECHNIQUE: A single frontal AP view of the chest was obtained. Comparison: None. FINDINGS: The cardiac silhouette is within normal size limits. The thoracic aorta is calcified. Patchy opacities are noted in the left lung base along the diaphragm. No focal right lung findings. No definable pleural fluid collection or visible pneumothorax. Surgical clips are noted in the projection of the mediastinum and left upper abdominal quadrant. IMPRESSION: PATCHY LEFT LUNG BASE OPACITY, MAY REPRESENT ATELECTASIS OR ACUTE AIR SPACE DISEASE SUCH PNEUMONIA. JOB NUMBER: [id number] [facility]
== END 2018-08-08 16:17 | DRG 884 ==
LOC: ER 09:23 → MEDSURG 12:56
PROVIDERS: ADMIT Internal Medicine; ATTEND Internal Medicine
DX: R40.4 Transient alteration of awareness (principal); N12 Tubulo-interstitial nephritis, not specified as acute or chronic; C49.9 Malignant neoplasm of connective and soft tissue, unspecified; R50.9 Fever, unspecified; I10 Essential (primary) hypertension; F03.90 Unspecified dementia, unspecified severity, without behavioral disturbance, psychotic disturbance, mood disturbance, and anxiety; G62.9 Polyneuropathy, unspecified; Z96.0 Presence of urogenital implants; Z66 Do not resuscitate; Z86.73 Personal history of transient ischemic attack (TIA), and cerebral infarction without residual deficits; Z87.442 Personal history of urinary calculi
CPT/HCPCS: 83605; 80053; 36416; 81001; 82948; 80305; 85027; 71045; 70450; 93005; 93010; J0744; 80048; 96365; 96366; 99223; 99239; 99285; J1956; J7030

== ENCOUNTER 2018-09-19 16:02 | Emergency (ER) | payer MEDICARE, BC ==
--- NOTE | 2018-09-19 16:54 | Emergency Department Record ---
History of Present Illness - General Chief complaint: Male Urogenital Problem Stated complaint: REPLACE CATHETER Time Seen by Provider: 09/19/18 16:39 Source: Patient, RN notes reviewed - History of Present Illness Initial comments: de león catheter problems and visiting nurses had trouble with putting it in. They tried twice today and unsuccessful and he has chronic urinary retention and has a de león which gets changed monthly. - Related Data Previous Rx's Medication Instructions Recorded Ciprofloxacin HCl [Cipro] 500 mg PO Q12HR #10 tablet 09/19/18 Allergies Allergy/AdvReac Type Severity Reaction Status Date / Time donepezil Allergy HYPERSENSIT Verified 08/06/18 10:35 IVITY ibuprofen [From Motrin] Allergy HYPERSENSIT Verified 08/06/18 10:35 IVITY pneumococcal vaccine Allergy HYPERSENSIT Verified 08/06/18 10:35 IVITY shellfish derived Allergy HYPERSENSIT Verified 08/06/18 10:35 IVITY Sulfa (Sulfonamide Allergy HYPERSENSIT Verified 08/06/18 10:35 Antibiotics) IVITY Tetanus Vaccines and Toxoid Allergy HYPERSENSIT Verified 08/06/18 10:35 IVITY Review of Systems Reviewed: No additional complaints except as noted below Constitutional: Reports: As per HPI. Denies: Chills, Fever, Malaise, Night sweats, Weakness, Weight change Eyes: Reports: As per HPI. Denies: Eye discharge, Eye pain, Photophobia, Vision change ENT: Reports: As per HPI. Denies: Congestion, Dental pain, Ear pain, Epistaxis, Hearing loss, Throat pain Respiratory: Reports: As per HPI. Denies: Cough, Dyspnea, Hemoptysis, Stridor, Wheezes Cardiovascular: Reports: As per HPI. Denies: Arrhythmia, Chest pain, Dyspnea on exertion, Edema, Murmurs, Orthopnea, Palpitations, Paroxysmal nocturnal dyspnea, Rheumatic Fever, Syncope Endocrine: Reports: As per HPI. Denies: Fatigue, Heat or cold intolerance, Polydipsia, Polyuria Gastrointestinal: Reports: As per HPI. Denies: Abdominal pain, Constipation, Diarrhea, Hematemesis, Hematochezia, Melena, Nausea, Vomiting Genitourinary: Reports: As per HPI, Retention. Denies: Dysuria, Frequency, Hematuria, Incontinence, Testicular pain, Testicular mass, Urgency Musculoskeletal: Reports: As per HPI. Denies: Arthralgia, Back pain, Gout, Joint swelling, Myalgia, Neck pain Skin: Reports: As per HPI. Denies: Bruising, Change in color, Change in hair/nails, Lesions, Pruritus, Rash Neurological: Reports: As per HPI. Denies: Abnormal gait, Confusion, Headache, Numbness, Paresthesias, Seizure, Tingling, Tremors, Vertigo, Weakness Psychiatric: Reports: As per HPI. Denies: Anxiety, Auditory hallucinations, Depression, Homicidal thoughts, Suicidal thoughts, Visual hallucinations Hematological/Lymphatic: Reports: As per HPI. Denies: Anemia, Blood Clots, Easy bleeding, Easy bruising, Swollen glands Past Medical History - SOCIAL HISTORY Smoking Status: Never smoker Alcohol Use Comment: beer infrequently in past Drug Use: None - RESPIRATORY Hx Respiratory Disorders: No - CARDIOVASCULAR Hx Cardio Disorders: Yes Hx Hypertension: Yes - NEURO Hx Neuro Disorders: Yes Hx Dementia: Yes Hx Neuropathy: Yes - GI Hx GI Disorders: Yes Hx Hiatal Hernia: Yes Hx of Polyps: Yes - Hx Genitourinary Disorders: Yes Hx Kidney Stones: Yes Hx UTI: Yes (frequent) - ENDOCRINE Hx Endocrine Disorders: No - MUSCULOSKELETAL Hx Musculoskeletal Disorders: No - PSYCH Hx Psych Problems: No - HEMATOLOGY/ONCOLOGY Hx Hematology/Oncology Disorders: Yes Hx Cancer: Yes (liposarcoma) Family Medical History Hx Alcohol Use: Mother, Brother/Sister Hx Cancer: Father Hx Dementia: Father, Grandparents Hx Heart Disease: Mother Physical Exam - General General Appearance: Alert, Oriented x3, Cooperative, No acute distress - Head Head exam: Normal inspection - Eye Eye exam: Normal appearance, PERRL Pupils: Normal accommodation - ENT ENT exam: Normal exam, Mucous membranes moist, Normal external ear exam, Normal orophraynx, TM's normal bilaterally Ear exam: Normal external inspection. negative: External canal tenderness Nasal Exam: Normal inspection. negative: Discharge, Sinus tenderness Mouth exam: Normal external inspection, Tongue normal Teeth exam: Normal inspection. negative: Dental caries Throat exam: Normal inspection. negative: Tonsillar erythema, Tonsillar exudate - Neck Neck exam: Normal inspection, Full ROM. negative: Tenderness - Respiratory Respiratory exam: Normal lung sounds bilaterally. negative: Respiratory distress - Cardiovascular Cardiovascular Exam: Regular rate, Normal rhythm, Normal heart sounds - GI/Abdominal GI/Abdominal exam: Soft, Normal bowel sounds. negative: Tenderness - Rectal Rectal exam: Deferred - exam: Deferred - Extremities Extremities exam: Normal inspection, Full ROM, Normal capillary refill. negative: Tenderness - Back Back exam: Reports: Normal inspection, Full ROM. Denies: Muscle spasm, Rash noted, Tenderness - Neurological Neurological exam: Alert, Normal gait, Oriented X3, Reflexes normal - Psychiatric Psychiatric exam: Normal affect, Normal mood - Skin Skin exam: Dry, Intact, Normal color, Warm Course - Reevaluation(s) Reevaluation #1: 09/19/18 16:55 talked to and will treat with cipro for 5 days 09/19/18 16:56 Disposition Clinical Impression: Urinary retention Disposition: Group Home Care Facility Condition: (1) Good Instructions: Urinary Retention in Men (ED) Additional Instructions: follow up with Dr Staley in [address] [facility] Prescriptions: Ciprofloxacin HCl [Cipro] 500 mg PO Q12HR #10 tablet Time of Disposition: 16:58 Quality - Quality Measures Quality Measures: N/A - Blood Pressure Screening Does Patient Have Any of the Following: No, Active Dx of HTN Systolic Measurement: ~ Screening for High Blood Pressure: Patient Exclusion, Hx of HTN [G9744]
== END 2018-09-19 17:24 ==
LOC: ER 16:02
DX: R33.8 Other retention of urine (principal); I10 Essential (primary) hypertension
CPT/HCPCS: 99282

== ENCOUNTER 2018-10-12 12:15 | Emergency (ER) | payer MEDICARE, BC ==
[2018-10-12] MEDS ORDERED: LIDOCAINE UROJECT 10 ML APPL MM ONE (12:30)
--- NOTE | 2018-10-12 12:58 | Emergency Department Record ---
History of Present Illness - General Chief complaint: Male Urogenital Problem Stated complaint: NEEDS CATH Time Seen by Provider: 10/12/18 12:44 Source: Patient Mode of Arrival: Ambulatory Limitations: No limitations - History of Present Illness Initial comments: pt here to have sarthak changed. Complaint: Other Onset/Timin -: Hour(s) Severity: Moderate Severity scale (1-10): 1 Quality: Aching Indwelling catheter Reports: Denies other symptoms - Related Data Previous Rx's Medication Instructions Recorded Ciprofloxacin HCl [Cipro] 500 mg PO Q12HR #10 tablet 09/19/18 Allergies Allergy/AdvReac Type Severity Reaction Status Date / Time donepezil Allergy HYPERSENSIT Verified 10/12/18 12:29 IVITY ibuprofen [From Motrin] Allergy HYPERSENSIT Verified 10/12/18 12:29 IVITY pneumococcal vaccine Allergy HYPERSENSIT Verified 10/12/18 12:29 IVITY shellfish derived Allergy HYPERSENSIT Verified 10/12/18 12:29 IVITY Sulfa (Sulfonamide Allergy HYPERSENSIT Verified 10/12/18 12:29 Antibiotics) IVITY Tetanus Vaccines and Toxoid Allergy HYPERSENSIT Verified 10/12/18 12:29 IVITY Travel Screening - Travel/Exposure Within Last 30 Days Have you traveled within the last 30 days?: No - Travel/Exposure Within Last Year Have you traveled outside the [place] in the last year?: No - Additonal Travel Details Have you been exposed to anyone with a communicable illness?: No - Travel Symptoms Symptom Screening: None Review of Systems Reviewed: No additional complaints except as noted below Constitutional: Reports: As per HPI. Denies: Chills, Fever, Malaise, Night sweats, Weakness, Weight change Eyes: Reports: As per HPI. Denies: Eye discharge, Eye pain, Photophobia, Vision change ENT: Reports: As per HPI. Denies: Congestion, Dental pain, Ear pain, Epistaxis, Hearing loss, Throat pain Respiratory: Reports: As per HPI. Denies: Cough, Dyspnea, Hemoptysis, Stridor, Wheezes Cardiovascular: Reports: As per HPI. Denies: Arrhythmia, Chest pain, Dyspnea on exertion, Edema, Murmurs, Orthopnea, Palpitations, Paroxysmal nocturnal dyspnea, Rheumatic Fever, Syncope Endocrine: Reports: As per HPI. Denies: Fatigue, Heat or cold intolerance, Polydipsia, Polyuria Gastrointestinal: Reports: As per HPI. Denies: Abdominal pain, Constipation, Diarrhea, Hematemesis, Hematochezia, Melena, Nausea, Vomiting Genitourinary: Reports: As per HPI. Denies: Dysuria, Frequency, Hematuria, Incontinence, Retention, Testicular pain, Testicular mass, Urgency Musculoskeletal: Reports: As per HPI. Denies: Arthralgia, Back pain, Gout, Joint swelling, Myalgia, Neck pain Skin: Reports: As per HPI. Denies: Bruising, Change in color, Change in hair/nails, Lesions, Pruritus, Rash Neurological: Reports: As per HPI. Denies: Abnormal gait, Confusion, Headache, Numbness, Paresthesias, Seizure, Tingling, Tremors, Vertigo, Weakness Psychiatric: Reports: As per HPI. Denies: Anxiety, Auditory hallucinations, Depression, Homicidal thoughts, Suicidal thoughts, Visual hallucinations Hematological/Lymphatic: Reports: As per HPI. Denies: Anemia, Blood Clots, Easy bleeding, Easy bruising, Swollen glands Past Medical History - SOCIAL HISTORY Smoking Status: Never smoker Alcohol Use: None Drug Use: None - RESPIRATORY Hx Respiratory Disorders: No - CARDIOVASCULAR Hx Cardio Disorders: Yes Hx Hypertension: Yes - NEURO Hx Neuro Disorders: Yes Hx Dementia: Yes Hx Neuropathy: Yes - GI Hx GI Disorders: Yes Hx Hiatal Hernia: Yes Hx of Polyps: Yes - Hx Genitourinary Disorders: Yes Hx Kidney Stones: Yes Hx UTI: Yes (frequent) - ENDOCRINE Hx Endocrine Disorders: No - MUSCULOSKELETAL Hx Musculoskeletal Disorders: No - PSYCH Hx Psych Problems: No - HEMATOLOGY/ONCOLOGY Hx Hematology/Oncology Disorders: Yes Hx Cancer: Yes (liposarcoma) Family Medical History Any Significant Family History?: Yes Hx Alcohol Use: Mother, Brother/Sister Hx Cancer: Father Hx Dementia: Father, Grandparents Hx Heart Disease: Mother Physical Exam - General General Appearance: Alert, Oriented x3, Cooperative, No acute distress - Head Head exam: Normal inspection - Eye Eye exam: Normal appearance, PERRL, EOMI Pupils: Normal accommodation - ENT ENT exam: Normal exam, Mucous membranes moist, Normal external ear exam, Normal orophraynx Ear exam: Normal external inspection. negative: External canal tenderness Nasal Exam: Normal inspection. negative: Discharge, Sinus tenderness Mouth exam: Normal external inspection, Tongue normal Teeth exam: Normal inspection. negative: Dental caries Throat exam: Normal inspection. negative: Tonsillar erythema, Tonsillar exudate - Neck Neck exam: Normal inspection, Full ROM. negative: Tenderness - Respiratory Respiratory exam: Normal lung sounds bilaterally. negative: Respiratory distress - Cardiovascular Cardiovascular Exam: Regular rate, Normal rhythm, Normal heart sounds - GI/Abdominal GI/Abdominal exam: Soft, Normal bowel sounds. negative: Tenderness - Rectal Rectal exam: Deferred - exam: Deferred - Extremities Extremities exam: Normal inspection, Full ROM, Normal capillary refill. negative: Tenderness - Back Back exam: Reports: Normal inspection, Full ROM. Denies: Muscle spasm, Rash noted, Tenderness - Neurological Neurological exam: Alert, CN II-XII intact, Normal gait, Oriented X3 - Psychiatric Psychiatric exam: Normal affect, Normal mood - Skin Skin exam: Dry, Intact, Normal color, Warm Course Vital Signs 10/12/18 12:25 Temperature 98.0 F Pulse Rate 65 Respiratory 20 Rate Blood Pressure 142/68 Pulse Ox 97 Disposition Disposition: Discharge (catheter) Clinical Impression: Catheter (urine) change required Disposition: Home, Self-Care Condition: (1) Good Instructions: Fitzgerald Catheter Placement and Care (ED) Additional Instructions: follow up with family doctor. return sooner if worse Quality - Quality Measures Quality Measures: N/A - Blood Pressure Screening Does Patient Have Any of the Following: Active Dx of HTN Blood Pressure Classification: Hypertensive Reading Systolic Measurement: 142 Diastolic Measurement: 68 Screening for High Blood Pressure: Patient Exclusion, Hx of HTN [[id number]]
== END 2018-10-12 13:20 | disposition home or self-care (01) ==
LOC: ER 12:15
DX: Z46.6 Encounter for fitting and adjustment of urinary device (principal); I10 Essential (primary) hypertension
CPT/HCPCS: 99282